=== PATIENT | male | born 1950 | race Caucasian/White ===

== ENCOUNTER → 2018-03-14 | Outpatient (CLI) | payer MEDICARE, OTHER, MEDICAID | END | disposition home or self-care (01) | LOC: EEG 08:00 | DX: S02.91XD Unspecified fracture of skull, subsequent encounter for fracture with routine healing (principal); S06.5X9D Traumatic subdural hemorrhage with loss of consciousness of unspecified duration, subsequent encounter | CPT/HCPCS: 95819 ==